=== PATIENT | female | born 1955 | race Caucasian/White ===

== ENCOUNTER 2018-07-03 08:45 | Emergency (ER) | payer OTHER, MEDICARE ==
[~2018-07-03] VITALS: Ht 160 cm; Wt 95.3 kg
[~2018-07-03 08:45] MED LIST: ZOFRAN ODT4 M1 SL
--- NOTE | 2018-07-03 09:24 | ED HEADACHE COMPLAINT ---
History of Present Illness General Chief Complaint: General Adult Stated Complaint: BIBA, HEAD PRESSURE, +N, ABD PAIN Source: patient Exam Limitations: no limitations Vital Signs & Intake/Output Vital Signs & Intake/Output Vital Signs Date Time Temp Pulse Resp B/P B/P Pulse O2 O2 Flow FiO2 Mean Ox Delivery Rate 07/03 1001 98.2 70 19 140/90 100 Room Air 07/03 0849 98.3 76 18 186/88 99 Room Air Allergies Coded Allergies: No Known Allergies (07/03/18) Reconcile Medications Ondansetron (Zofran Odt) 4 MG TAB.RAPDIS 1 TAB SL TID PRN nausea Triage Note: PT BIBA FROM HOME C/O ANXIETY, CP/BODY PAIN, SLIGHTLY SOB, NAUSEA. PT HAS HX OF ANXIETY, HTN. STATES ONLY TOOK A FEW OF HER MEDS TODAY, VICODIN, BP MEDS AND GEODON Triage Nurses Notes Reviewed? yes Onset: Abrupt Duration: hour(s): (6), constant Timing: recent history HPI: Pt is a 62 y/o F PMHx HTN, Bipolar d/o, fibromyalgia, chronic back and knee pain presenting with a head "pressure" x 6 hours. Pt states she felt a global pressure come on at 3:00 AM. Pt does not endorse much pain, but stresses the sensation of increased pressure. Pt states she felt an associated ear popping. Pt admits to nausea and photophobia. Pt also decribes generalized fatigue, constipation, and straining to urninate. Pt states she takes morphine and vicodin daily and missed her morning morphine dose. Pt denies any V/D, cp, dizziness, fevers, chills, diaphoresis. (Diallo Viveros) Past History Travel History Traveled to [place] past 21 day No Medical History Any Pertinent Medical History? see below for history Neurological: FIBROMYALGIA Cardiovascular: hypertension Musculoskeletal: chronic pain Psychiatric: anxiety, bipolar disease, depression Endocrine: diabetes Surgical History Surgical History: non-contributory Psychosocial History What is your primary language Malay Tobacco Use: Quit >30 days ago ETOH Use: denies use Illicit Drug Use: denies illicit drug use Family History Hx Contributory? Yes (Diallo Viveros) Review of Systems Review of Systems Constitutional: Reports: no symptoms. Eyes: Reports: no symptoms. Ears, Nose, Throat, Mouth: Reports: no symptoms. Respiratory: Reports: no symptoms. Cardiovascular: Reports: no symptoms. Gastrointestinal/Abdominal: Reports: see HPI. Genitourinary: Reports: no symptoms. Musculoskeletal: Reports: no symptoms. Skin: Reports: no symptoms. Neurological/Psychological: Reports: see HPI. Hematologic/Endocrine: Reports: no symptoms. Endocrine: Reports: no symptoms. Immunologic/Allergic: Reports: no symptoms. All Other Systems: Reviewed and Negative (Diallo Viveros) Physical Exam Physical Exam General Appearance: well developed/nourished, anxious Head: atraumatic, normal appearance Eyes: Bilateral: normal appearance, PERRL, EOMI. Ears, Nose, Throat: normal ENT inspection, hearing grossly normal Neck: normal inspection, supple, full range of motion Respiratory: normal breath sounds, lungs clear Cardiovascular: regular rate/rhythm, normal peripheral pulses, NMRG Gastrointestinal: normal bowel sounds, soft, non-tender, no organomegaly Cranial Nerves: CN II-XII intact Coordination/Gait: normal finger to nose Motor/Sensory: no motor/sensory deficits, Strength 5/5 bilaterally UE and LE Skin: intact, normal color Core Measures Sepsis Present: No Sepsis Focused Exam Completed? Yes (Diallo Viveros) Progress Differential Diagnosis: cav sinus thromb, cluster DIAS, encephalitis, IC mass/ tumor, intracranial Hem., migraine DIAS, musculoskeletal pain, sinusitis, SSS thrombosis, subarach. Hem., tension DIAS, temporal arteritis, TMJ syndrome, viral cephalgia Plan of Care: Orders Procedure Date/time Status URINALYSIS 07/03 903 Complete COMPREHENSIVE METABOLIC PANEL 07/03 903 Complete CBC WITHOUT DIFFERENTIAL 07/03 903 Complete EKG 07/03 08 Active Laboratory Tests 07/03/18 0932: Urine Color YEL, Urine Clarity CLEAR, Urine pH 7.5, Ur Specific [place] 1.010, Urine Protein NEG, Urine Ketones NEG, Urine Nitrite NEG, Urine Bilirubin NEG, Urine Urobilinogen 0.2, Ur Leukocyte Esterase NEG, Ur Microscopic EXAM NOT REQUIRED, Urine Hemoglobin NEG, Urine Glucose NEG 07/03/18 0915: Anion Gap 9, Estimated GFR > 60, BUN/Creatinine Ratio 15.0, Glucose 99, Calcium 9.4, Total Bilirubin 0.6, AST 21, ALT 29, Alkaline Phosphatase 76, Total Protein 6.6, Albumin 4.2, Globulin 2.4, Albumin/Globulin Ratio 1.8, CBC w Diff NO MAN DIFF REQ, RBC 4.21, MCV 82.3, MCH 27.7, MCHC 33.6, RDW 13.6, MPV 7.4, Gran % 57.8, Lymphocytes % 30.2, Monocytes % 8.7, Eosinophils % 2.2, Basophils % 1.1, Absolute Granulocytes 4.7, Absolute Lymphocytes 2.4, Absolute Monocytes 0.7 H, Absolute Eosinophils 0.2, Absolute Basophils 0.1 Diagnostic Imaging: Viewed by Me: CT Scan. Discussed w/RAD: CT Scan. Radiology Impression: PATIENT: JENNA FOSTER PRESENT AGE: 62 PATIENT ACCOUNT NO: [id number] : 57 LOCATION: [facility] ORDERING PHYSICIAN: Diallo RODRIGUEZ SERVICE DATE: 07/03/18 EXAM TYPE: CAT - CT HEAD WO IV CONTRAST EXAMINATION: CT HEAD WITHOUT CONTRAST CLINICAL INFORMATION: Headache. Evaluate for acute intracranial hemorrhage. COMPARISON: No relevant prior imaging. TECHNIQUE: Contiguous axial imaging was performed from the skull base to vertex without intravenous administration of contrast. DLP: 590.92 mGy-cm FINDINGS: There is no acute intracranial hemorrhage or abnormal extra-axial collection. No intracranial mass effect or midline shift. Lateral and third ventricles are normal. No hydrocephalus. Farnsworth-white matter differentiation is grossly preserved and there is no evidence of acute territorial infarct. The calvarium and skull base are intact. Mastoid air cells and middle ear cavities are well aerated. Visualized paranasal sinuses are well- aerated. IMPRESSION: Unremarkable CT scan of the head. No evidence acute territorial infarct or hemorrhage. DICTATED BY: Kvng Pratt MD DATE/TIME DICTATED:07/03/18944 MANAGER CLIENT SUPPORT:ULI DATE/TIME TRANSCRIBED:944 CONFIDENTIAL, DO NOT COPY WITHOUT APPROPRIATE AUTHORIZATION. < Electronically signed in Other Vendor System> SIGNED BY: Kvng Pratt MD 07/03/18952 Initial ED EKG: normal sinus rhythm, rate (69) (Terry RODRIGUEZ,Diallo) Departure Departure Disposition: HOME OR SELF CARE Condition: Stable Clinical Impression Primary Impression: Headache Secondary Impressions: General weakness Referrals: Krystian Jim MD (PCP/Family) Additional Instructions: Follow-up with your primary care doctor. Return if any concerns worsening symptoms. Please go over all results of today's visit with your primary care doctor. Contact your primary care doctor to let them know you were here in the emergency room. There may be nonspecific findings which may not be related to your visit today here in the emergency room but may require further evaluation and chronic monitoring by your primary care doctor. If you had a laceration today the chance of foreign body always remains. You should follow-up with your primary care doctor for recheck in 3-5 days for a wound check. If you had an x-ray done there is a chance that a fracture could have been missed on initial read and you should follow-up with your primary care doctor for repeat x-rays if symptoms persist. If your blood pressure was elevated here in the emergency room please have rechecked by shantel primary care doctor within the next 48. If you were prescribed a narcotic here in the emergency room or any type of controlled substances you're not allowed to drive while taking this medication or operate any type of heavy machinery. Narcotics can make you feel lightheaded dizziness nausea and can cause constipation. You may need to oyster picker a stool softener. Thank you for choosing [facility] emergency room. Please return to the emergency room immediately if you have any other concerns worsening of symptoms. Departure Forms: Customer Survey General Discharge Information Comments 07/03/2018 12:48:55 PM Patient clinically looks well. She is neurologically intact. Her headache was not severe sudden onset and thunderclap in nature. She describes it as a general pressure. Her CT scan is negative. Symptoms started about 6 hours prior to arrival which makes the CT scan very sensitive in picking up subarachnoid hemorrhage. Clinical presentation is not consistent with subarachnoid hemorrhage and very low suspicion therefore lumbar puncture not done. Her symptoms have resolved upon reevaluation at this point she feels completely fine and normal. She wants to go home and is ready for discharge. She denied any chest pain or shortness of breath. (Diallo Viveros) PA/ONCOLOGY PHYSICIAN Co-Sign Statement Statement: ED Attending supervision documentation- [] I saw and evaluated the patient. I have also reviewed all the pertinent lab results and diagnostic results. I agree with the findings and the plan of care as documented in the PA's/ONCOLOGY PHYSICIAN's documentation. [x] I have reviewed the ED Record and agree with the PA's/ONCOLOGY PHYSICIAN's documentation. [] Additions or exceptions (if any) to the PAs/ONCOLOGY PHYSICIAN's note and plan are summarized below: [] (Paul Acosta DO)
[2018-07-03 09:29] LABS: ABSOLUTE BASOPHIL COUNT 0.1 /CUMM (0.0-0.2); ABSOLUTE EOSINOPHIL COUNT 0.2 /CUMM (0.0-0.7); ABSOLUTE GRANULOCYTE CT 4.7 /CUMM (1.4-6.5); ABSOLUTE LYMPH COUNT 2.4 /CUMM (1.2-3.4); ABSOLUTE MONOCYTE COUNT 0.7 /CUMM (0.10-0.60); BASOPHIL % 1.1 % (0.0-2.0); EOSINOPHIL % 2.2 % (0-5); GRANULOCYTE % 57.8 % (42.2-75.2); HEMATOCRIT 34.7 % (37-47); MEAN CORPUSCULAR HGB 27.7 PG (27.0-31.0); MEAN CORPUSCULAR HGB CONC 33.6 G/DL (33.0-37.0); MEAN CORPUSCULAR VOLUME 82.3 FL (81.0-99.0); MEAN PLATELET VOLUME 7.4 FL (7.4-10.4); PLATELET COUNT 434 /CUMM (130-400); RBC DISTRIBUTION WIDTH 13.6 % (11.5-14.5); RED BLOOD CELL CT 4.21 /CUMM (4.20-5.40); WHITE BLOOD CELL COUNT 8.1 /CUMM (4.8-10.8)
--- NOTE | 2018-07-03 09:53 | CT SCAN REPORT ---
EXAMINATION: CT HEAD WITHOUT CONTRAST CLINICAL INFORMATION: Headache. Evaluate for acute intracranial hemorrhage. COMPARISON: No relevant prior imaging. TECHNIQUE: Contiguous axial imaging was performed from the skull base to vertex without intravenous administration of contrast. DLP: 590.92 mGy-cm FINDINGS: There is no acute intracranial hemorrhage or abnormal extra-axial collection. No intracranial mass effect or midline shift. Lateral and third ventricles are normal. No hydrocephalus. Farnsworth-white matter differentiation is grossly preserved and there is no evidence of acute territorial infarct. The calvarium and skull base are intact. Mastoid air cells and middle ear cavities are well aerated. Visualized paranasal sinuses are well-aerated. IMPRESSION: Unremarkable CT scan of the head. No evidence acute territorial infarct or hemorrhage.
[2018-07-03 10:01] VITALS: BP 140/90
== END 2018-07-03 10:17 ==
LOC: ERH 08:45
PROVIDERS: Physician Assistant Medical
DX: R51 Headache (principal); R53.1 Weakness; M79.7 Fibromyalgia; Z87.891 Personal history of nicotine dependence; I10 Essential (primary) hypertension; F41.9 Anxiety disorder, unspecified; F31.9 Bipolar disorder, unspecified
CPT/HCPCS: 81003; 93005; 93010; J2405